=== PATIENT | male | born 1985 | race Caucasian/White ===

== ENCOUNTER 2018-10-23 17:05 | Emergency (ER) | payer MEDICAID ==
[~2018-10-23] VITALS: Ht 177.8 cm; Wt 97.7 kg
[2018-10-23 17:58] LABS: BASOPHILS # (AUTO) 0.06 x10^3/uL (0-0.1); BASOPHILS % (AUTO) 1 % (0-1); EOSINOPHILS # (AUTO) 0.25 x10^3/uL (0-0.4); EOSINOPHILS % (AUTO) 2 % (1-7); LYMPHOCYTES % (AUTO) 31 % (22-44); MD NO; MEAN CORPUSCULAR HEMOGLOBIN 30.2 pg (27.5-34.5); MEAN CORPUSCULAR HGB CONC 34.7 g/dL (33.2-36.2); MEAN CORPUSCULAR VOLUME 87.1 fL (81-97); MEAN PLATELET VOLUME 8.7 fL (7.4-10.4); MONOCYTES # (AUTO) 0.66 x10^3/uL (0.2-0.8); MONOCYTES % (AUTO) 6 % (2-9); NEUTROPHILS # (AUTO) 6.22 x10^3/uL (1.8-6.8); NEUTROPHILS % (AUTO) 60 % (42-75); PLATELET COUNT 303 x10^3/uL (130-400); RED BLOOD COUNT 5.29 x10^6/uL (4.38-5.82); RED CELL DISTRIBUTION WIDTH 12.5 % (9.4-14.8)
[2018-10-23 18:06] LABS: ALBUMIN 3.8 g/dL (3.4-5.0); ANION GAP 2 mmol/L (5-15); CHLORIDE 107 mmol/L (98-107); CREATININE 0.94 mg/dL (0.7-1.3)
[2018-10-23 18:21] VITALS: BP 111/75
--- NOTE | 2018-10-23 19:24 | NUR ---
POC DISCUSSED. SW PAGED DUE TO PT BEING HOMELESS AND NOT WANTING TO GO TO THE DROP IN PRISON.
--- NOTE | 2018-10-23 20:09 | NUR ---
SW ATTEMPTED TO SPEAK WITH PT HOWEVER PT WOULD NOT WAKE UP. [facility] PROVIDED THIS RN WITH A LIST OF HOUSING RESOURCES. PT TOOK MUCH ENCOURAGEMENT BY THIS RN TO SIT UP AND RECEIVE DC INSTRUCTIONS. RESOURCE PAPER GIVEN TO PT. PT GETTING DRESSED AT THIS TIME.
--- NOTE | 2018-10-23 20:34 | NUR ---
PT WAS FOUND SLEEPING IN BED. PT WAS AWOKEN AND AGAIN INFORMED IT IS TIME TO GET DRESSED. PT WAS ABLE TO STAND AND WAS ENCOURAGED TO GET DRESSED.
== END 2018-10-23 21:13 | disposition home or self-care (01) ==
LOC: ED 18:58
DX: R53.1 Weakness (principal); M79.10 Myalgia, unspecified site; R53.83 Other fatigue; Z72.9 Problem related to lifestyle, unspecified; R51 Headache; M79.642 Pain in left hand; F17.200 Nicotine dependence, unspecified, uncomplicated
CPT/HCPCS: 36415; 80048; 80307; 82040; 85025; 99283